=== PATIENT | male | born 1985 | race African-American/Black ===

== ENCOUNTER 2016-11-17 18:50 | Emergency (ER) | payer BC | END 2016-11-17 19:14 | disposition home or self-care (01) | LOC: ER 18:50 | DX: S91.332A Puncture wound without foreign body, left foot, initial encounter (principal); F31.9 Bipolar disorder, unspecified; Z88.0 Allergy status to penicillin; W22.8XXA Striking against or struck by other objects, initial encounter | CPT/HCPCS: 73630-LT; 90471; 90714; 99283 ==